=== PATIENT | male | born 1990 | race African-American/Black ===

== ENCOUNTER 2023-06-08 07:26 | Emergency (ER) | payer OTHER, SELFPAY ==
[2023-06-08 07:30] VITALS: PULSE 83; RESP 18; TEMP 36.7; O2SAT 98; BMI 22.0
--- NOTE | 2023-06-08 08:30 | ED_ITS ---
HPI - General Adult General Chief complaint: Wound/Laceration Stated complaint: RIPPED EAR RING OUT OF R EAR Time Seen by Provider: 06/08/23 08:30 Source: patient Mode of arrival: walk-in Limitations: no limitations History of Present Illness HPI narrative: Patient is a 32-year-old male who is coming in with chief complaint of accidentally ripping his right started hearing out of his right lower earlobe. Patient said this happened approximately 4:30 this morning. Patient did have a tetanus update 2 months ago at his doctor's visit. Patient does have a PCP. 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 Patient has had the earrings in for many years, most of the laceration is very normal healed skin that has been use to the earring for many years. There is an extreme small minimal area of possible abrasion/tear at the bottom of the earlobe at the bottom of where the earring had been sitting. No active bleeding. The area of laceration looks possibly less than 2-3 mm. Patient has no other acute complaints at this time. Patient is not currently work this morning. . All systems are negative except as noted/marked. All systems reviewed and otherwise negative. . Nurses note and vital signs reviewed and patient is not hypoxic. General: The patient appears well and in no apparent distress. Patient is resting comfortably on cart. Patient is not toxic, lethargic, or listless Skin: Warm, dry, no pallor noted. There is no rash noted. No petechiae, purpura. Patient has a laceration to the right lower earlobe. However, there is only approximately 1-2 mm of area that looks slightly abrasions with dried blood, a centimeter linear opening is in the right lower earlobe as well, however is very healed. Normal skin secondary to been having earrings for a long time; many years. Head: Normocephalic, atraumatic Eye: Normal conjunctiva, no drainage, EOMI. PERRL Ears, Nose, Mouth, and Throat: oral mucosa is moist. Cardiovascular: Regular Rate and Rhythm, no murmur, gallop, rub Respiratory: Patient is in no distress, no accessory muscle use, lungs are clear to auscultation, no wheezing, rales or rhonchi Musculoskeletal: Patient has full range of motion of all of the extremities, no motor, sensory, or focal neurological deficits Neurological: A&O x3, normal speech Psychiatric: Cooperative Related Data Allergies Allergy/AdvReac Type Severity Reaction Status Date / Time No Known Drug Allergies Allergy Verified 06/08/23 07:33 [facility] Social History Smoking status: Current every day smoker Exam Constitutional Vital Signs, click to edit/add: Last Vital Signs Temp 98.1 F 06/08/23 07:30 Pulse 83 06/08/23 07:30 Resp 18 06/08/23 07:30 Pulse Ox 98 06/08/23 07:30 O2 Del Method Room Air 06/08/23 07:30 Course Vital Signs Vital signs: Vital Signs Temperature 98.1 F 06/08/23 07:30 Pulse Rate 83 06/08/23 07:30 Respiratory Rate 18 06/08/23 07:30 Pulse Oximetry 98 06/08/23 07:30 Oxygen Delivery Method Room Air 06/08/23 07:30 Temperature 98.1 F 06/08/23 07:30 Pulse Rate 83 06/08/23 07:30 Respiratory Rate 18 06/08/23 07:30 Pulse Oximetry 98 06/08/23 07:30 Oxygen Delivery Method Room Air 06/08/23 07:30 Medical Decision Making MDM Narrative Medical decision making narrative: Laceration repair: Done under sterile conditions. The use of Shur-Clens prep the area. Local injection with lidocaine 1% was used, approximately 2 cc. The wound was irrigated copiously with normal saline. The wound was explored there was no evidence of foreign material. The laceration was approximated with 5-0 nylon. ONE simple interrupted sutures was placed. Patient tolerated the procedure well. The patient was neurovascularly intact post. the patient had bacitracin applied to the laceration and a dry sterile dressing was place. The patient will need to follow-up in the next 7-10 days for removal. Brea BATES was at bedside assisting with procedure. Patient was in the Emergency Room for a lengthy amount of time secondary to patient volume. Patient was understanding. Patient had one suture placed. Bacitracin was applied at discharge. Education on wound care was done at bedside. Patient was given a work note as well. No questions at discharge Discharge Plan Discharge Chief Complaint: Wound/Laceration Clinical Impression: Laceration Patient Disposition: Home, Self-Care Time of Disposition Decision: 10:10 Condition: Good Instructions: Laceration (ED) Additional Instructions: Use topical antibiotic ointment 3-4 times a day to help prevent infection and promote healing. Remove the sutures in 7-10 days, hopefully small area of skin will adhere to each other. A picture was shown to you how Very small, 2-3 mm Area The laceration went through. Follow-up with your PCP for removal of one suture. Stand Alone Forms: Portal Instructions Referrals: Physician,Non-Staff, MD [Primary Care Provider] - 1 week
== END 2023-06-08 10:14 | disposition home or self-care (01) ==
PROVIDERS: Emergency Provider Emergency Medicine
DX: S01.311A Laceration without foreign body of right ear, initial encounter (principal); X58.XXXA Exposure to other specified factors, initial encounter; F17.210 Nicotine dependence, cigarettes, uncomplicated
CPT/HCPCS: 12011; 99282